=== PATIENT | male | born 2000 | race Two or more races ===

== ENCOUNTER 2023-09-15 21:33 | Emergency (ER) | payer OTHER ==
[~2023-09-15] VITALS: Ht 172.7 cm; Wt 68.0 kg
[2023-09-15] MEDS ORDERED: AMOX-CLAV 875-1 EAC1 PO (22:54)
== END 2023-09-15 23:02 ==
LOC: ER 21:34
DX: S01.111A Laceration without foreign body of right eyelid and periocular area, initial encounter (principal); W19.XXXA Unspecified fall, initial encounter; Y93.9 Activity, unspecified; Y92.9 Unspecified place or not applicable; Y99.9 Unspecified external cause status